=== PATIENT | male | born 1955 | race Caucasian/White ===

== ENCOUNTER 2016-10-12 23:54 | Inpatient (IN) | payer OTHER ==
[2016-10-13] MEDS ORDERED: HYDROmorphone 1 MG/ML Syringe IVPUSH ONE ×2 (02:03→03:27)
[2016-10-13] MEDS ORDERED: Ondansetron 4 MG/2 ML SDV IVPUSH ONE (02:03)
[2016-10-13] MEDS ORDERED: Sodium Chloride 0.9% 1,000 ML IV SCH ×2 (02:15→03:30)
[2016-10-13] MEDS: Pantoprazole 40 MG Vial IVPUSH ONE ×2 (03:47→03:50)
[2016-10-13] MEDS ORDERED: Naloxone 0.4 MG/ML SDV IVPUSH PRN (04:43)
[2016-10-13] MEDS ORDERED: Insulin Detemir 100 Units/ML 3 ML Pen SUBCUT ONE (04:43)
[2016-10-13] MEDS ORDERED: Albuterol 0.083% 2.5 MG/3 ML Neb Soln NEB PRN (04:43)
[2016-10-13] MEDS ORDERED: LORazepam 2 MG/ML MDV IV PRN (04:43)
[2016-10-13] MEDS ORDERED: Albuterol/Ipratropium 3.0-0.5 MG/3 ML Neb Soln NEB PRN (04:43)
[2016-10-13] MEDS ORDERED: Lactated Ringers 1,000 ML IV SCH (04:43)
--- NOTE | 2016-10-13 04:52 | EDM.PDOC ---
ED HPI GENERAL MEDICAL PROBLEM - General Chief Complaint: Abdominal Pain Stated Complaint: ILLNESS WEIGHT LOSS Time Seen by Provider: 10/13/16 02:02 Source of Information: Reports: Patient History Limitations: Reports: No Limitations - History of Present Illness INITIAL COMMENTS - FREE TEXT/NARRATIVE: abdominal pain; this is a 60 year old male present to ER with concerns of nausea , vomiting and retching for the past 3 days. He reports lives in [place], [place] , here on vacation. He has multi concerns of possible pancreatitis, losing wt, ventral hernia. He just doesnt feel right. 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 Onset: Gradual Duration: Day(s):, Getting Worse Location: Reports: Abdomen Quality: Reports: Sharp Severity: Severe Improves with: Reports: None Worsens with: Reports: Eating Associated Symptoms: Reports: Fever/Chills, Headaches, Loss of Appetite, Malaise , Nausea/Vomiting, Weakness Abdominal Pain Score (Numeric/FACES): 10 - Related Data Allergies Allergy/AdvReac Type Severity Reaction Status Date / Time piperacillin [From Zosyn] Allergy Rash Verified 10/13/16 01:43 tazobactam [From Zosyn] Allergy Rash Verified 10/13/16 01:43 Home Meds: Home Meds Allopurinol [Zyloprim] 300 mg PO DAILY 10/13/16 [History] Hydrochlorothiazide [Hydrochlorothiazide] 12.5 mg PO DAILY 10/13/16 [History] Pramipexole [Mirapex] 0.5 mg PO BEDTIME PRN 10/13/16 [History] Venlafaxine [Venlafaxine HCl ER] 150 mg PO DAILY 10/13/16 [History] Zolpidem Tartrate [Zolpidem Tartrate ER] 12.5 mg PO BEDTIME 10/13/16 [History] atorvaSTATin [Lipitor] 80 mg PO DAILY 10/13/16 [History] Past Medical History HEENT History: Reports: Impaired Vision Cardiovascular History: Reports: Stents Gastrointestinal History: Reports: Bowel Obstruction, Pancreatitis, Other (See Below) Other Gastrointestinal History: hernia, cyst after pancreatitis Musculoskeletal History: Reports: Back Pain, Chronic, Fracture Endocrine/Metabolic History: Reports: Diabetes, Type I Hematologic History: Reports: Anemia, Blood Transfusion(s) - Past Surgical History Cardiovascular Surgical History: Reports: Coronary Artery Stent GI Surgical History: Reports: Other (See Below) Other GI Surgeries/Procedures: cyst removal Neurological Surgical History: Reports: C-Spine, Lumbar Spine Musculoskeletal Surgical History: Reports: ORIF Social & Family History - Tobacco Use Smoking Status *Q: Current Every Day Smoker Years of Tobacco use: 20 Packs/Tins Daily: 0.5 - Caffeine Use Caffeine Use: Reports: Coffee - Recreational Drug Use Recreational Drug Use: No - Living Situation & Occupation Living situation: Reports: Occupation: Employed ED ROS GENERAL - Review of Systems Review Of Systems: See Below Constitutional: Reports: Chills, Malaise, Weakness, Fatigue, Decreased Appetite , Weight Loss Respiratory: Reports: Other (smoker; 1/2 pack of mini cigars) Cardiovascular: Reports: Edema (lower legs.) Endocrine: Reports: High Glucose, Other (Diabetes Type 1 , dx Feb 2016) GI/Abdominal: Reports: Abdominal Pain, Anorexia, Decreased Appetite, Nausea, Vomiting, Other (ventral hernia, Gastric bypass 2005) : Reports: No Symptoms Musculoskeletal: Reports: Back Pain, Muscle Pain, Other (hx of lamenectomy) Skin: Reports: No Symptoms Neurological: Reports: No Symptoms Psychiatric: Reports: No Symptoms Hematologic/Lymphatic: Reports: Anemia, Easy Bruising Immunologic: Reports: No Symptoms ED EXAM, GI/ABD - Physical Exam Exam: See Below Exam Limited By: No Limitations General Appearance: Alert, Anxious, Mild Distress, Thin, Cachetic Eyes: Bilateral: Normal Appearance Ears: Normal External Exam Nose: Normal Inspection, Normal Mucosa, No Blood Throat/Mouth: Normal Inspection, Normal Lips, Normal Teeth, Normal Gums, Normal Oropharynx, Normal Voice, No Airway Compromise Head: Atraumatic, Normocephalic, Other (thin, bony facial appearance) Neck: Normal Inspection, Supple, Non-Tender, Full Range of Motion Respiratory/Chest: No Respiratory Distress, Lungs Clear, Normal Breath Sounds, No Accessory Muscle Use, Chest Non-Tender Cardiovascular: Normal Peripheral Pulses, Regular Rate, Rhythm, No Edema, No Gallop, No JVD, No Murmur, No Rub GI/Abdominal: Hypoactive Bowel Sounds, Tenderness (generalized upper abdominal pain wth palpation), Other (hernia noted to mid abdomen.) (Male) Exam: Deferred Rectal (Males) Exam: Deferred Back Exam: Normal Inspection, Muscle Spasm Extremities: Normal Range of Motion, Non-Tender, Normal Capillary Refill, Pedal Edema Neurological: Alert, Oriented, CN II-XII Intact, Normal Cognition, Normal Gait, Normal Reflexes, No Motor/Sensory Deficits Psychiatric: Normal Mood, Anxious Skin Exam: Warm, Dry, Intact, Normal Color, No Rash Lymphatic: No Adenopathy Course - Vital Signs Last Recorded V/S: Last Vital Signs Temp 36.5 C 10/13/16 00:58 Pulse 76 10/13/16 00:58 Resp 16 10/13/16 00:58 BP 142/91 H 10/13/16 00:58 Pulse Ox 99 10/13/16 00:58 - Orders/Labs/Meds Orders: Active Orders 24 hr Category Date Time Status Abdomen Pelvis wo Cont [CT] Stat Exams 10/13/16 02:20 Taken Sodium Chloride 0.9% [Normal Saline] 1,000 ml Med 10/13/16 03:30 Active IV ASDIRECTED Medication Orders Albuterol (Proventil Neb Soln) 2.5 mg NEB Q4H PRN PRN Reason: Shortness Of Breath/wheezing Albuterol/Ipratropium (Duoneb 3.0-0.5 Mg/3 Ml) 3 ml NEB QID PRN PRN Reason: Shortness Of Breath/wheezing Hydrochlorothiazide (Hydrochlorothiazide) 12.5 mg PO DAILY MARTI Hydromorphone HCl (Dilaudid Appointment Specialist 15 Mg In Ns 30 Ml) 0 mg IV ASDIRECTED PRN; Protocol PRN Reason: Pain Sodium Chloride (Normal Saline) 1,000 mls @ 99 mls/hr IV ASDIRECTED MARTI Last Admin: 10/13/16 03:49 Dose: 99 mls/hr Lactated Ringer's (Ringers, Lactated) 1,000 mls @ 500 mls/hr IV ASDIRECTED [facility] Insulin Aspart (Novolog) 0 unit SUBCUT ASDIRECTED MARTI PRN Reason: Protocol Insulin Detemir (Levemir) 20 unit SUBCUT ONETIME ONE Stop: 10/13/16 04:44 Lorazepam (Ativan) 1 mg IV Q6H PRN PRN Reason: Nausea/Vomiting Naloxone HCl (Narcan) 0.4 mg IVPUSH Q2M PRN PRN Reason: Respiratory Distress Non-Formulary Medication (Venlafaxine [Venlafaxine Hcl Er]) 150 mg PO DAILY [facility] Ondansetron HCl (Zofran) 4 mg IV Q4H PRN PRN Reason: Nausea/Vomiting Zolpidem Tartrate (Ambien) 5 mg PO BEDTIME PRN PRN Reason: Sleep Labs: Laboratory Tests 10/13/16 10/13/16 10/13/16 Range/Units 02:15 02:15 02:15 WBC 8.6 (4.5-11.0) K/uL RBC 4.45 (4.30-5.90) M/uL Hgb 11.1 L (12.0-15.0) g/dL Hct 33.0 L (40.0-54.0) % MCV 74 L (80-98) fL MCH 25 L (27-31) pg MCHC 34 (32-36) % Plt Count 550 H (150-400) K/uL Neut % (Auto) 64 (36-66) % Lymph % (Auto) 20 L (24-44) % [place] % (Auto) 15 H (2-6) % Eos % (Auto) 1 L (2-4) % Baso % (Auto) 0 (0-1) % PT 11.5 (9.5-12.0) sec INR 1.07 (0.80-1.20) Sodium 130 L (140-148) mmol/L Potassium 3.3 L (3.6-5.2) mmol/L Chloride 95 L (100-108) mmol/L Carbon Dioxide 26 (21-32) mmol/L Anion Gap 12.3 (5.0-14.0) mmol/L BUN 15 (7-18) mg/dL Creatinine 1.0 (0.8-1.3) mg/dL Est Cr Clr Drug Dosing 90.00 mL/min Estimated GFR (MDRD) > 60 (>60) Glucose 233 H (74-106) mg/dL Calcium 8.2 L (8.5-10.1) mg/dL Magnesium 2.0 (1.8-2.4) mg/dL Total Bilirubin 0.4 (0.2-1.0) mg/dL AST 14 L (15-37) U/L ALT 17 (12-78) U/L Alkaline Phosphatase 224 H (46-116) U/L Troponin I < 0.017 (0.000-0.056) ng/mL Total Protein 6.9 (6.4-8.2) g/dL Albumin 2.7 L (3.4-5.0) g/dL Globulin 4.2 H (2.3-3.5) g/dL Albumin/Globulin Ratio 0.6 L (1.2-2.2) Amylase (25-115) U/L Lipase (73-393) U/L Urine Color Urine Appearance Urine pH (4.5-8.0) Ur Specific [place] (1.008-1.030) Urine Protein (NEGATIVE) mg/dL Urine Glucose (UA) (NEGATIVE) mg/dL Urine Ketones (NEGATIVE) mg/dL Urine Occult Blood (NEGATIVE) Urine Nitrite (NEGAITVE) Urine Bilirubin (NEGATIVE) Urine Urobilinogen (NORMAL) mg/dL Ur Leukocyte Esterase (NEGATIVE) Urine RBC (0-5) Urine WBC (0-5) Ur Epithelial Cells Amorphous Sediment Urine Bacteria Urine Mucus Urine Opiates Screen (NEGATIVE) Ur Oxycodone Screen (NEGATIVE) Urine Methadone Screen (NEGATIVE) Ur Propoxyphene Screen (NEGATIVE) Ur Barbiturates Screen (NEGATIVE) Ur Tricyclics Screen (NEGATIVE) Ur Phencyclidine Scrn (NEGATIVE) Ur Amphetamine Screen (NEGATIVE) U Methamphetamines Scrn (NEGATIVE) Urine MDMA Screen (NEGATIVE) U Benzodiazepines Scrn (NEGATIVE) U Cocaine Metab Screen (NEGATIVE) U Marijuana (THC) Screen (NEGATIVE) 10/13/16 10/13/16 10/13/16 Range/Units 02:15 03:44 03:44 WBC (4.5-11.0) K/uL RBC (4.30-5.90) M/uL Hgb (12.0-15.0) g/dL Hct (40.0-54.0) % MCV (80-98) fL MCH (27-31) pg MCHC (32-36) % Plt Count (150-400) K/uL Neut % (Auto) (36-66) % Lymph % (Auto) (24-44) % [place] % (Auto) (2-6) % Eos % (Auto) (2-4) % Baso % (Auto) (0-1) % PT (9.5-12.0) sec INR (0.80-1.20) Sodium (140-148) mmol/L Potassium (3.6-5.2) mmol/L Chloride (100-108) mmol/L Carbon Dioxide (21-32) mmol/L Anion Gap (5.0-14.0) mmol/L BUN (7-18) mg/dL Creatinine (0.8-1.3) mg/dL Est Cr Clr Drug Dosing mL/min Estimated GFR (MDRD) (>60) Glucose (74-106) mg/dL Calcium (8.5-10.1) mg/dL Magnesium (1.8-2.4) mg/dL Total Bilirubin (0.2-1.0) mg/dL AST (15-37) U/L ALT (12-78) U/L Alkaline Phosphatase (46-116) U/L Troponin I (0.000-0.056) ng/mL Total Protein (6.4-8.2) g/dL Albumin (3.4-5.0) g/dL Globulin (2.3-3.5) g/dL Albumin/Globulin Ratio (1.2-2.2) Amylase 96 (25-115) U/L Lipase 293 (73-393) U/L Urine Color Yellow Urine Appearance Clear Urine pH 6.0 (4.5-8.0) Ur Specific [place] 1.020 (1.008-1.030) Urine Protein Negative (NEGATIVE) mg/dL Urine Glucose (UA) 1000 H (NEGATIVE) mg/dL Urine Ketones 15 H (NEGATIVE) mg/dL Urine Occult Blood Negative (NEGATIVE) Urine Nitrite Negative (NEGAITVE) Urine Bilirubin Small (NEGATIVE) Urine Urobilinogen 1 (NORMAL) mg/dL Ur Leukocyte Esterase Negative (NEGATIVE) Urine RBC Not seen (0-5) Urine WBC Not seen (0-5) Ur Epithelial Cells Few Amorphous Sediment Not seen Urine Bacteria Not seen Urine Mucus Few Urine Opiates Screen Negative (NEGATIVE) Ur Oxycodone Screen Negative (NEGATIVE) Urine Methadone Screen Negative (NEGATIVE) Ur Propoxyphene Screen Negative (NEGATIVE) Ur Barbiturates Screen Negative (NEGATIVE) Ur Tricyclics Screen Negative (NEGATIVE) Ur Phencyclidine Scrn Negative (NEGATIVE) Ur Amphetamine Screen Negative (NEGATIVE) U Methamphetamines Scrn Negative (NEGATIVE) Urine MDMA Screen Negative (NEGATIVE) U Benzodiazepines Scrn Negative (NEGATIVE) U Cocaine Metab Screen Negative (NEGATIVE) U Marijuana (THC) Screen Negative (NEGATIVE) Meds: Medications Generic Name Dose Route Start Last Admin Trade Name Chapo PRN Reason Stop Dose Admin Albuterol 2.5 mg 10/13/16 04:43 Proventil Neb Soln NEB Q4H PRN Shortness Of Breath/wheezing Albuterol/Ipratropium 3 ml 10/13/16 04:43 Duoneb 3.0-0.5 Mg/3 Ml NEB QID PRN Shortness Of Breath/wheezing Hydrochlorothiazide 12.5 mg 10/13/16 09:00 Hydrochlorothiazide PO DAILY MARTI Hydromorphone HCl 0 mg 10/13/16 04:43 Dilaudid Appointment Specialist 15 Mg In Ns 30 Ml IV ASDIRECTED PRN Pain Protocol Sodium Chloride 1,000 mls @ 99 mls/hr 10/13/16 03:30 10/13/16 03:49 Normal Saline IV 99 mls/hr ASDIRECTED MARTI Administration Lactated Ringer's 1,000 mls @ 500 mls/hr 10/13/16 04:43 Ringers, Lactated IV ASDIRECTED [facility] Insulin Aspart 0 unit 10/13/16 04:43 Novolog SUBCUT ASDIRECTED [facility] Protocol Insulin Detemir 20 unit 10/13/16 04:43 Levemir SUBCUT 10/13/16 04:44 ONETIME ONE Lorazepam 1 mg 10/13/16 04:43 Ativan IV Q6H PRN Nausea/Vomiting Naloxone HCl 0.4 mg 10/13/16 04:43 Narcan IVPUSH Q2M PRN Respiratory Distress Non-Formulary Medication 150 mg 10/13/16 09:00 Venlafaxine [Venlafaxine Hcl Er] PO DAILY [facility] Ondansetron HCl 4 mg 10/13/16 04:43 Zofran IV Q4H PRN Nausea/Vomiting Zolpidem Tartrate 5 mg 10/13/16 04:43 Ambien PO BEDTIME PRN Sleep Discontinued Medications Generic Name Dose Route Start Last Admin Trade Name Chapo PRN Reason Stop Dose Admin Hydromorphone HCl 1 mg 10/13/16 02:03 10/13/16 02:22 Dilaudid IVPUSH 10/13/16 02:04 1 mg ONETIME ONE Administration Hydromorphone HCl 1 mg 10/13/16 03:27 10/13/16 03:53 Dilaudid IVPUSH 10/13/16 03:28 1 mg ONETIME ONE Administration Sodium Chloride 1,000 mls @ 999 mls/hr 10/13/16 02:15 10/13/16 02:17 Normal Saline IV 999 mls/hr ASDIRECTED MARTI Administration Ondansetron HCl 4 mg 10/13/16 02:03 10/13/16 02:18 Zofran IVPUSH 10/13/16 02:04 4 mg ONETIME ONE Administration Pantoprazole Sodium 40 mg 10/13/16 03:29 10/13/16 03:50 Protonix Iv IVPUSH 10/13/16 03:30 40 mg ONETIME ONE Administration - Re-Assessments/Exams Free Text/Narrative Re-Assessment/Exam: 10/13/16 04:[address] scan of abdomen and pelvis; show a bowel obstruction, not pancreatitis labs; wbc 8.6, hgb 11.1, hct 33.0, Na 130, K+3.3, cl 95, anion gap 12.5, bun 15 , creat 1.0, [id number], inr 1.07, PT 11.5, amylase 96, lipase [address] 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
[2016-10-13] MEDS ORDERED: Potassium Chloride 20 MEQ in Premix Bag 1 BAG IV ONE (05:08)
[2016-10-13] MEDS: HYDROmorphone/Normal Saline 15 MG/30 ML PCA IV PRN ×3 (05:12→22:40)
[2016-10-13] MEDS: Venlafaxine 75 MG Cap.ER PO SCH (08:35)
[2016-10-13] MEDS: Hydrochlorothiazide 12.5 MG Cap PO SCH (08:45)
[2016-10-13] MEDS: Insulin Aspart 100 Units/ML 3 ML Pen SUBCUT SCH ×3 (08:46→18:20)
[2016-10-13] MEDS ORDERED: Allopurinol 300 MG Tab PO ONE (09:00)
[2016-10-13] MEDS ORDERED: Iohexol 300 MG/ML 30 ML Bottle PO ONE (09:33)
[2016-10-13] MEDS ORDERED: Iohexol 647 MG/ML 10 ML SDV ONE (09:48)
[2016-10-13] MEDS ORDERED: Iopamidol 612 MG/ML 100 ML Bottle IV PRN (09:58)
[2016-10-13] MEDS ORDERED: Sodium Chloride 0.9% 75 ML IV SCH (10:00)
[2016-10-13] MEDS: Potassium Chloride 20 MEQ, Lidocaine 1% 2 ML in Sodium Chloride 0.9% 100 ML IV SCH ×3 (11:42→16:20)
[2016-10-13] MEDS: Ondansetron 4 MG/2 ML SDV IV PRN ×2 (15:28→20:30)
[2016-10-13] MEDS: Dextrose 5%-Lactated Ringers 1,000 ML IV SCH ×2 (16:21→23:58)
[2016-10-13] MEDS: Nicotine 14 MG/24 Hr Patch TRDERM SCH (18:17)
[2016-10-13] MEDS: Remove Patch*NICOTINE PATCH TRDERM SCH (20:11)
[2016-10-13] MEDS: Zolpidem 5 MG Tab PO PRN (23:57)
[2016-10-14] MEDS: Ondansetron 4 MG/2 ML SDV IV PRN (02:52)
[2016-10-14] MEDS ORDERED: Rocuronium 50 MG/5 ML Vial ONE ×2 (05:56→11:58)
[2016-10-14] MEDS ORDERED: Propofol 200 MG/20 ML SDV ONE (05:56)
[2016-10-14] MEDS ORDERED: Succinylcholine/Normal Saline 200 MG/10 ML Syringe ONE (05:56)
[2016-10-14] MEDS ORDERED: Ondansetron 4 MG/2 ML SDV ONE (05:56)
[2016-10-14] MEDS ORDERED: fentaNYL 250 MCG/5 ML SDV ONE (05:56)
[2016-10-14] MEDS ORDERED: Neostigmine Methylsulfate 1 MG/ML 5 ML Syringe ONE (05:56)
[2016-10-14] MEDS ORDERED: Dexamethasone 4 MG/ML SDV ONE (05:56)
[2016-10-14] MEDS: Dextrose 5%-Lactated Ringers 1,000 ML IV SCH ×2 (06:21→15:47)
[2016-10-14] MEDS ORDERED: cefOXitin 2 GM in Sodium Chloride 0.9% 50 ML IV ONE (07:30)
[2016-10-14] MEDS: Insulin Aspart 100 Units/ML 3 ML Pen SUBCUT SCH ×3 (08:41→21:13)
[2016-10-14] MEDS: Nicotine 14 MG/24 Hr Patch TRDERM SCH (08:49)
[2016-10-14] MEDS: Venlafaxine 75 MG Cap.ER PO SCH (09:23)
[2016-10-14] MEDS: Hydrochlorothiazide 12.5 MG Cap PO SCH (09:24)
[2016-10-14] MEDS ORDERED: Bupivacaine 0.5%/EPINEPHrine 1:200,000 50 ML MDV ONE (09:59)
[2016-10-14] MEDS ORDERED: Lactated Ringers 1,000 ML ONE (11:04)
[2016-10-14] MEDS ORDERED: fentaNYL 25 MCG/HR Transdermal Patch TRDERM SCH (12:00)
[2016-10-14] MEDS ORDERED: Meropenem 500 MG SDV ONE (13:20)
[2016-10-14] MEDS ORDERED: hydrOXYzine HCl 100 MG/2 ML SDV IM PRN (15:32)
[2016-10-14] MEDS ORDERED: hydrOXYzine HCl 25 MG Tab PO PRN (15:33)
[2016-10-14] MEDS ORDERED: Cyclobenzaprine 10 MG Tab PO PRN (15:33)
[2016-10-14] MEDS: cefOXitin 2 GM in Sodium Chloride 0.9% 50 ML IV SCH ×2 (15:46→21:36)
[2016-10-14] MEDS: HYDROmorphone/Normal Saline 15 MG/30 ML PCA IV PRN (20:20)
[2016-10-14] MEDS: FENTANYL PATCH CHECK TOP SCH (20:41)
[2016-10-14] MEDS: Remove Patch*NICOTINE PATCH TRDERM SCH (21:36)
[2016-10-15] MEDS: Zolpidem 5 MG Tab PO PRN ×2 (00:37→23:43)
[2016-10-15] MEDS: Dextrose 5%-Lactated Ringers 1,000 ML IV SCH ×4 (00:37→16:07)
[2016-10-15] MEDS ORDERED: Iohexol 647 MG/ML 50 ML SDV PO STA (03:29)
[2016-10-15] MEDS: cefOXitin 2 GM in Sodium Chloride 0.9% 50 ML IV SCH (04:23)
[2016-10-15] MEDS ORDERED: Insulin Detemir 100 Units/ML 3 ML Pen SUBCUT ONE (07:15)
--- NOTE | 2016-10-15 08:06 | PN ---
DATE OF SERVICE: 10/15/2016 SUBJECTIVE: Malvin is a 60-year-old male. He is postop day #1. Reporting his pain is controlled. Temp max of 99.2. Oral intake of clear liquid 720 and output is 1600. FRANKIE drain put out 210 of light pink serous drainage. Labs this morning; hemoglobin 11.8 and magnesium was 1.5. REVIEW OF SYSTEMS: Remainder of review of systems negative for any pertinent positives and negatives. OBJECTIVE: GENERAL: Malivn Urbina is a 60-year-old male. He is alert and oriented. VITAL SIGNS: TPR 99, 180, 16, blood pressure 151/100. HEENT: Negative. NECK: Supple. HEART: Regular rate and rhythm. LUNGS: Clear. ABDOMEN: Dressings dry and intact. FRANKIE drain intact. Abdominal binder is on. EXTREMITIES: Without peripheral edema. ASSESSMENT: 1. Exploratory laparotomy with lysis of adhesions. 2. Formation of pancreatic cyst gastrostomy. 3. Small-bowel resection. 4. Repair of incarcerated incisional hernia. 5. Placement of Vicryl mesh. 6. Near complete omentectomy for partial adhesions of small-bowel obstruction, incarcerated incisional hernia, pancreatic pseudocyst, extensive adhesions, and large portion of necrotic omentum. Date of surgery, 10/14/2016. PLAN: 1. Schedule and have consent signed for delayed primary closure in a.m., 10/16/2016, n.p.o. after midnight. IV and local sedation, Elmer Trinidad M.D. 2. Decrease IV rate to 100 mL per hour. 3. Magnesium 2 g IV q.6 hours x72 hours. 4. Full liquid diet. 5. Lantus 10 units subcu now. 6. Lantus 20 units q.h.s. scheduled. 7. Good pulmonary toilet encouraged. 8. We will evaluate p.r.n. or in a.m. Sue Ho PA-C /[id number]
[2016-10-15] MEDS: Venlafaxine 75 MG Cap.ER PO SCH (08:22)
[2016-10-15] MEDS: Nicotine 14 MG/24 Hr Patch TRDERM SCH (08:22)
[2016-10-15] MEDS: FENTANYL PATCH CHECK TOP SCH ×2 (08:24→21:32)
[2016-10-15] MEDS: Hydrochlorothiazide 12.5 MG Cap PO SCH (08:24)
[2016-10-15] MEDS: Insulin Aspart 100 Units/ML 3 ML Pen SUBCUT SCH ×3 (08:27→18:14)
[2016-10-15] MEDS ORDERED: Insulin Detemir 100 Units/ML 3 ML Pen SUBCUT SCH (09:00)
--- NOTE | 2016-10-15 09:28 | CR ---
UGI wo KUB HISTORY: eval gbp FINDINGS: After administration of oral contrast, upright views were obtained. Post operative changes gastric bypass. Surgical drains in place. No evidence for leak. Contrast passes freely into dilated proximal small bowel loops. IMPRESSION: No evidence for leak.
[2016-10-15] MEDS: Magnesium Sulfate/Water 2 GM in Premix Bag 1 BAG IV SCH ×3 (09:38→21:33)
--- NOTE | 2016-10-15 10:55 | CR ---
Abdomen 1V Flat INDICATION: DOCUMENT LOCATION OF GASTROSTOMY STENT FINDINGS: Postoperative changes gastric bypass. Surgical drain in place. Linear density projected ov er the left upper quadrant. No evidence for small bowel obstruction. Lumbar laminectomies.
[2016-10-15] MEDS: Ondansetron 4 MG/2 ML SDV IV PRN (13:16)
[2016-10-15] MEDS: HYDROmorphone/Normal Saline 15 MG/30 ML PCA IV PRN (17:52)
[2016-10-15] MEDS: Insulin Detemir 100 Units/ML 3 ML Pen SUBCUT SCH (21:30)
[2016-10-15] MEDS: Remove Patch*NICOTINE PATCH TRDERM SCH (21:32)
[2016-10-16] MEDS: Dextrose 5%-Lactated Ringers 1,000 ML IV SCH (02:46)
[2016-10-16] MEDS: Magnesium Sulfate/Water 2 GM in Premix Bag 1 BAG IV SCH ×4 (03:21→21:57)
[2016-10-16] MEDS ORDERED: Meropenem 500 MG SDV ONE (06:52)
[2016-10-16] MEDS ORDERED: Lidocaine 1% 50 ML MDV ONE (06:52)
[2016-10-16] MEDS ORDERED: Bupivacaine 0.5%/EPINEPHrine 1:200,000 50 ML MDV ONE (06:52)
[2016-10-16] MEDS ORDERED: Propofol 200 MG/20 ML SDV ONE (06:58)
[2016-10-16] MEDS ORDERED: fentaNYL 100 MCG/2 ML SDV ONE (06:58)
[2016-10-16] MEDS ORDERED: Midazolam 1 MG/ML 2 ML SDV ONE (06:58)
[2016-10-16] MEDS ORDERED: Ondansetron 4 MG/2 ML SDV ONE (07:45)
[2016-10-16] MEDS ORDERED: Dexamethasone 4 MG/ML SDV ONE (07:45)
[2016-10-16] MEDS ORDERED: 50% Dextrose in Water 50 ML Syringe IVPUSH ONE (08:00)
[2016-10-16] MEDS: Hydrochlorothiazide 12.5 MG Cap PO SCH (09:24)
[2016-10-16] MEDS: Venlafaxine 75 MG Cap.ER PO SCH (09:24)
[2016-10-16] MEDS: FENTANYL PATCH CHECK TOP SCH ×2 (09:26→22:22)
[2016-10-16] MEDS: Nicotine 14 MG/24 Hr Patch TRDERM SCH (09:28)
[2016-10-16] MEDS ORDERED: MVI, Adult with Vitamin K 10 ML, Chromium/Copper/Mang/Selen/Zn 1 ML, Thiamine 200 MG in... IV ONE ×4 (10:00)
[2016-10-16] MEDS: Bisacodyl 5 MG Tab PO SCH ×2 (10:49→21:57)
[2016-10-16] MEDS: Docusate Sodium 100 MG Cap PO SCH ×2 (10:49→21:57)
[2016-10-16] MEDS: Insulin Aspart 100 Units/ML 3 ML Pen SUBCUT SCH ×3 (12:18→22:01)
[2016-10-16] MEDS: Amylase/Lipase/Protease 12,000 Unit Cap.CR PO SCH (17:28)
[2016-10-16] MEDS: HYDROmorphone/Normal Saline 15 MG/30 ML PCA IV PRN (19:35)
[2016-10-16] MEDS: Amylase/Lipase/Protease 12,000 Unit Cap.CR PO PRN (19:55)
[2016-10-16] MEDS ORDERED: Zolpidem 5 MG Tab PO PRN (21:28)
[2016-10-16] MEDS: Insulin Detemir 100 Units/ML 3 ML Pen SUBCUT SCH (21:58)
[2016-10-16] MEDS: Metoprolol Succinate 50 MG Tab.ER PO SCH (21:58)
[2016-10-16] MEDS: Remove Patch*NICOTINE PATCH TRDERM SCH (22:22)
[2016-10-17] MEDS: Amylase/Lipase/Protease 12,000 Unit Cap.CR PO PRN ×2 (01:11→08:56)
[2016-10-17] MEDS: Magnesium Sulfate/Water 2 GM in Premix Bag 1 BAG IV SCH ×4 (03:21→21:14)
[2016-10-17] MEDS: Dextrose 5%-Lactated Ringers 1,000 ML IV SCH (03:25)
[2016-10-17] MEDS ORDERED: Iopamidol 612 MG/ML 150 ML Bottle IV PRN (07:45)
[2016-10-17] MEDS ORDERED: Sodium Chloride 0.9% 10 ML Syringe FLUSH PRN (07:45)
[2016-10-17] MEDS ORDERED: Sodium Chloride 0.9% 100 ML IV SCH (07:45)
[2016-10-17] MEDS: Venlafaxine 75 MG Cap.ER PO SCH (08:50)
[2016-10-17] MEDS: Metoprolol Succinate 50 MG Tab.ER PO SCH (08:50)
[2016-10-17] MEDS: Docusate Sodium 100 MG Cap PO SCH ×2 (08:51→21:09)
[2016-10-17] MEDS: Hydrochlorothiazide 12.5 MG Cap PO SCH (08:51)
[2016-10-17] MEDS: Nicotine 14 MG/24 Hr Patch TRDERM SCH (08:51)
[2016-10-17] MEDS: Bisacodyl 5 MG Tab PO SCH ×2 (08:53→21:09)
[2016-10-17] MEDS: Amylase/Lipase/Protease 12,000 Unit Cap.CR PO SCH ×2 (08:56→13:14)
[2016-10-17] MEDS ORDERED: Magnesium Citrate Solution 296 ML Bottle PO ONE (09:00)
[2016-10-17] MEDS: Insulin Detemir 100 Units/ML 3 ML Pen SUBCUT SCH ×2 (09:22→17:30)
--- NOTE | 2016-10-17 09:23 | PN ---
DATE OF SERVICE: 10/17/2016 SUBJECTIVE: Malvin's blood sugars have been 57, 199, 244 and 261. He did have a reaction to Ambien where behavior got somewhat out of control. vital signs otherwise have been stable. He has been up walking. Oral intake was 1760. Urine output was 972. REVIEW OF SYSTEMS: Remainder of review of systems negative for any pertinent positives and negatives. OBJECTIVE: GENERAL: Malvin Urbina is a 60-year-old male, alert, orientated. VITAL SIGNS: TPR 96.8, 73, 16, blood pressure 112/71. HEENT: Negative. NECK: Supple. HEART: Regular rate and rhythm. LUNGS: Clear. ABDOMEN: Dressings dry and intact. Abdominal binder is on. EXTREMITIES: Without peripheral edema. ASSESSMENT: 1. Exploratory laparotomy with lysis of adhesions, formation of pancreatic cystogastrostomy, small bowel resection, repair of incarcerated incisional hernia, placement of Vicryl mesh for near-complete omentectomy for partial adhesions of small bowel obstruction, incarcerated incisional hernia, pancreatic pseudocyst, extensive adhesions and large portion of necrotic omentum. Date of surgery 10/14/2016. 2. Delayed primary closure on 10/16/2016. PLAN: 1. Dressing off, august shower. Abdominal and pelvis CT with IV contrast. 2. Check amylase on the FRANKIE drain. 3. Discontinue Levemir 20 units at bedtime. 4. Levemir 15 units subcu b.i.d. Mag citrate 1 bottle one time this morning. Tramadol 50 mg p.o. q.4 hours p.r.n. pain. Convert IV to saline lock. D5LR discontinued. 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 Discontinue continuous pulse ox. Discontinue Ambien. 5. Mechanical soft diet to continue. 6. We will evaluate p.r.n. or in a.m. Sue Ho PA-C /[id number]
--- NOTE | 2016-10-17 09:46 | CT ---
Abdomen Pelvis w Cont Total DLP 882 mGycm. INDICATION: check pancreas sp pseudo cyst COMPARISON: CT 10/13/2016. FINDINGS: Postoperative changes gastric bypass. Interval placement of a drain with resultant decreas e in size of the pseudocyst seen along the anterior and superior aspect of the pancreatic body, whic h now measures 1.5 cm AP x 3.6 cm RL, previously 4.4 cm AP x 6.1 cm RL. No new pseudocysts or radiat ion. Interval decrease in the inflammation of the adjacent stomach. Mildly dilated loops of small joycelyn wel throughout the abdomen suggesting ileus. Moderate gas and stool throughout the colon. Moderate f ree fluid in the pelvis. Small bilateral pleural effusions with associated compressive atelectasis. Mild intra and extrahepatic bile duct dilatation. Mild anasarca. Exam otherwise unremarkable. IMPRESSION: 1. Interval placement of a drain with resultant decrease in size of the pseudocyst seen along the an terior and superior aspect of the pancreatic body. 2. Decrease in inflammation of the adjacent stomach. 3. New small bilateral pleural effusions with compressive atelectasis. 4. Probable small and large bowel ileus.
[2016-10-17] MEDS: traMADol 50 MG Tab PO PRN (13:25)
[2016-10-17] MEDS: LIPASE PO PRN (17:34)
[2016-10-17] MEDS: AMYLASE PO PRN (17:34)
[2016-10-17] MEDS: PROTEASE PO PRN (17:34)
[2016-10-17] MEDS: LIPASE PO SCH (17:35)
[2016-10-17] MEDS: PROTEASE PO SCH (17:35)
[2016-10-17] MEDS: AMYLASE PO SCH (17:35)
[2016-10-17] MEDS: Acetaminophen/HYDROcodone 325-5 MG Tab PO PRN ×2 (17:41→21:13)
--- NOTE | 2016-10-17 19:29 | PN ---
DATE OF SERVICE: 10/16/2016 The patient has been running some low-grade temperatures, but otherwise he has been clinically stable. He is up and walking quite well. Oral intake was fairly good. He had a delayed primary closure earlier today that looked good. His blood sugar was somewhat low at 50, but with Decadron and some IV fluid that came up to 135 in recovery room, so we did not end up giving him any D50. Otherwise, he will go up to a mechanical soft diet today. I gave him some bowel stimulation and then continue the present BELLOWS TESTER for today. Tafoya catheter will be coming out as well. Elmer Trinidad MD /[id number]
[2016-10-17] MEDS: Remove Patch*NICOTINE PATCH TRDERM SCH (21:10)
[2016-10-18] MEDS: traMADol 50 MG Tab PO PRN ×2 (00:36→09:05)
[2016-10-18] MEDS: Acetaminophen/HYDROcodone 325-5 MG Tab PO PRN ×2 (01:30→06:05)
[2016-10-18] MEDS: Magnesium Sulfate/Water 2 GM in Premix Bag 1 BAG IV SCH (04:10)
[2016-10-18] MEDS ORDERED: Insulin Detemir 100 Units/ML 3 ML Pen SUBCUT SCH (07:45)
[2016-10-18 08:02] VITALS: BP 132/87
[2016-10-18] MEDS: LIPASE PO SCH (09:05)
[2016-10-18] MEDS: PROTEASE PO SCH (09:05)
[2016-10-18] MEDS: AMYLASE PO SCH (09:05)
[2016-10-18] MEDS: Docusate Sodium 100 MG Cap PO SCH (09:06)
[2016-10-18] MEDS: Hydrochlorothiazide 12.5 MG Cap PO SCH (09:07)
[2016-10-18] MEDS: Venlafaxine 75 MG Cap.ER PO SCH (09:07)
[2016-10-18] MEDS: Nicotine 14 MG/24 Hr Patch TRDERM SCH (09:07)
[2016-10-18] MEDS: Bisacodyl 5 MG Tab PO SCH (09:07)
[2016-10-18] MEDS: Metoprolol Succinate 50 MG Tab.ER PO SCH (09:08)
[2016-10-18] MEDS: AMYLASE PO PRN (09:09)
[2016-10-18] MEDS: LIPASE PO PRN (09:09)
[2016-10-18] MEDS: PROTEASE PO PRN (09:09)
--- NOTE | 2016-10-19 04:26 | DISCH ---
ADMISSION DIAGNOSES: 1. Abdominal pain. 2. History of pancreatitis. 3. Diabetes type 1. 4. Anemia. 5. History of coronary artery stent. 6. Nicotine addiction. DISCHARGE DIAGNOSES: 1. Exploratory laparotomy, lysis of adhesions, formation of pancreatic cystogastrostomy, small bowel resection, repair of incarcerated incisional hernia, placement of Vicryl mesh for near complete omentectomy for partial adhesions and small bowel obstruction, incarcerated incisional hernia, pancreatic pseudocyst, and extensive adhesions, and large portion of necrotic omentum. Date of surgery 10/14/2016. 2. Delayed primary closure, 10/16/2016. 3. Diabetes type 1. HISTORY: Malvin Urbina is a 60-year-old male, who presented to the emergency room on 10/13/2016 with abdominal pain. After preoperative evaluation and discussion of possible risks and possible complications, he wished to proceed with surgical procedure. HOSPITAL COURSE: Malvin was admitted on 10/13/2016 and he had surgery on 10/14/2016 with a delayed primary closure on 10/16/2016. He had no complications. A CT scan was obtained on 10/17/2016 to evaluate the pancreatic pseudocyst. Malvin was n.p.o. on ice chips until after his delayed primary closure. Then, he had some bowel stimulation. He did have a bowel movement and his diet was advanced. Blood sugars were monitored closely while in the hospital and his pain was well managed. Activity good. He was able to be discharged to home on 10/18/2016. PHYSICAL EXAMINATION: GENERAL: Malvin is a 60-year-old male. VITAL SIGNS: Height is 6 feet 2 inches. Weight is 173 pounds. TPR is 97, 61, 16, and blood pressure 132/87. HEENT: Negative. NECK: Supple. HEART: Regular rate and rhythm. LUNGS: Clear. ABDOMEN: Dressings dry and intact. Abdominal binder is on. EXTREMITIES: Without peripheral edema. DISPOSITION: Discharged to home. CONDITION: Stable and improving. FOLLOWUP APPOINTMENT: With Elmer Trinidad MD, on 10/24/2016 at 12:00 p.m. HOME MEDICATIONS: [place] 5/325 mg 1 to 2 every 4 hours p.r.n. pain #50 and Levemir 8 units twice daily. He is to resume his home medications of allopurinol 300 mg daily, hydrochlorothiazide 12.5 mg oral daily, Creon 36,000 units takes 3 capsules and also 36,000 with meals and 2 capsules of 36,000 with snacks, metoprolol succinate (Toprol-XL) 100 mg oral daily, Mirapex 0.5 mg at bedtime, venlafaxine ER 150 mg oral daily, zolpidem tartrate 12.5 mg oral at bedtime, and Lipitor 60 mg oral daily. DIET AFTER DISCHARGE: Usual diet as tolerated. Drink 8 to 10 glasses of water a day. ACTIVITY: As tolerated. No lifting greater than 10 pounds for 6 weeks. DISCHARGE INSTRUCTIONS: Driving, do not drive while on pain medications. Notify provider if any fever, increased pain, nausea, or vomiting. Wound incision care, keep site clean and dry. Wear abdominal binder for 2 weeks and as tolerated. SPECIAL INSTRUCTION: Use incentive spirometer 10 times every hour while awake. Check blood sugars 4 times a day and bring results of blood sugar to clinic appointment. To have abdominal and pelvic CT scan done in 2 to 3 weeks.
--- NOTE | 2016-10-22 09:44 | OR ---
DATE OF PROCEDURE: 10/16/2016 PREOPERATIVE DIAGNOSIS: Open abdominal incision. POSTOPERATIVE DIAGNOSIS: Open abdominal incision. PROCEDURE PERFORMED: DICTATION ENDS HERE. Elmer Trinidad MD /[id number]
--- NOTE | 2016-10-22 12:49 | OR ---
DATE OF PROCEDURE: 10/16/2016 PREOPERATIVE DIAGNOSIS: Open abdominal incision. POSTOPERATIVE DIAGNOSIS: Open abdominal incision. OPERATIVE PROCEDURE: Delayed primary closure of open abdominal incision. ANESTHESIA: Local plus IV sedation. INDICATION FOR PROCEDURE: The patient is 48 hours status post a complicated procedure including a small-bowel resection along with an opened stomach for cystogastrostomy related to treatment of a pancreatic pseudocyst. The skin and subcutaneous tissue were felt to be high risk for wound infection if closure were undertaken. Given this, the wound was packed open for a planned delayed primary closure. Potential risks of the procedure including bleeding and infection were reviewed, and the patient wishes to proceed. DETAILS OF PROCEDURE: The patient was taken to the operating room and placed in a supine position. After IV sedation was administered, the abdominal dressing was taken down. The incision was inspected and found to be clean. The incision was then prepped and draped, anesthetized with 1% lidocaine mixed with Marcaine and irrigated with meropenem-containing saline solution. The incision was then closed with 2 layers of 3-0 and 4-0 Vicryl stitch deep, and then riley for the skin. Dressing was applied. The patient was taken to the recovery room in satisfactory condition. lEmer Trinidad MD /[id number]
--- NOTE | 2016-10-22 15:14 | OR ---
DATE OF PROCEDURE: 10/14/2016 PREOPERATIVE DIAGNOSES: 1. Partial small bowel obstruction. 2. Chronic pancreatic pseudocyst. POSTOPERATIVE DIAGNOSES: 1. Partial release of small bowel obstruction. 2. Chronic pancreatic pseudocyst. 3. Incarcerated incisional hernia. 4. A large portion of omentum becoming ischemic secondary to adhesion takedown. 5. Peritoneal nodule within the adhesions adjacent to the distal small bowel. PROCEDURE PERFORMED: 1. Exploratory laparotomy with lysis of adhesions. a. Formation of the pancreatic cystogastrostomy (12272). b. Small bowel resection (98704). c. Repair of incarcerated incisional hernia (68121). d. Near total omentectomy (39385). e. Excision of peritoneal nodule within the adhesion adjacent to the distal small bowel (22968). f. Placement of Interceed mesh to displace small bowel from pelvic and abdominal wall (89013). ANESTHESIA: General. INDICATIONS FOR PROCEDURE: This is a 60-year-old status post previous Felipe-en-Y gastric bypass, presenting with a picture of a partial small bowel obstruction. As part of the workup, he was also noted to have a large pancreatic pseudocyst. This appears to be chronic with a fairly thick wall and is adjacent to the previously bypassed gastric body. Plan is to proceed with exploratory laparotomy with release of small bowel obstruction, possible bowel resection, and drainage of the pancreatic pseudocyst by means of a cystogastrostomy. Potential risks of the procedure including, bleeding, infection, leaks from various GI tract closures, possible recurrence of the problem over time were all reviewed, and the patient wishes to proceed. DETAILS OF PROCEDURE: The patient was taken to the operating room after general endotracheal anesthesia was induced. A Tafoya catheter was inserted and the abdomen was prepped and draped. The previous upper midline incision was then reused and extended somewhat more inferiorly and carried down through the full thickness of the abdominal wall. Upon entering the abdomen, the patient was noted to have very extensive adhesions, between essentially all of the surfaces of the small bowel. There was also a large amount of edema diffusely within the upper aspect of the abdomen. This appeared to be likely related to the pancreatic pseudocyst. Over an extended period, the adhesions were eventually lysed. During the course of that lysis of adhesions, a large portion of the omentum became ischemic, and there was an area of small bowel that was attached to quite a bit in the way of abdominal wall which was deserosalized. The patient also had an incarcerated incisional hernia as noted on the preoperative CT scan which was reduced as part of the dissection as well. During the course of dissection, a nodule with an adhesion just adjacent to the distal small bowel was identified and excised. This measured around 5 mm in size. Eventually, the area was dissected sufficiently. A gastrotomy was then performed. The gastric wall was noted to be strikingly edematous, and this appeared to create quite a thick layer between the surface of the stomach and the inner aspect of the pancreatic pseudocyst. Ideally, this would be drained by means of an excision of portion of the cyst wall and suture the adjacent opening in the posterior stomach, but this appeared to be unsafe due to the amount of edema present and thickness of those tissues. Given this, a cystogastrostomy was accomplished by means of initially aspirating the cyst and then sending some of that fluid for cytology and amylase, then placement of a wire over 16-Dominican introducer was placed, and at that point a 15-Dominican Gopal-Elizalde drain was placed across the cystogastrostomy. This was cut such that roughly 5 cm of it extended into the gastric lumen and then sutured to the gastric lumen with 2 sutures of 3-0 Vicryl stitch giving the patient time enough with the tube in place that a chronic tract would likely be adequately formed. It was noted that fluid was serous in appearance and certainly consistent with a pseudocyst fluid as opposed to mucinous neoplasm. As this was completed the gastrotomy was then closed with 2 layers of 3-0 Vicryl stitch. At this point, the area of small bowel which was deserosalized was resected having been divided proximally and distally with LISA riley as was the underlying mesentery. A side-to- side enteroenterostomy was accomplished with 2 internal firings of the LISA mccrary load, and the common opening was closed transversely with the purple load. The angles of the anastomosis and mesenteric defect approximated with some 3-0 Vicryl stitch. At this point, no further problems were noted. The abdomen was irrigated with an antibiotic- containing saline solution. Gopal-Elizalde drain was taken through the right upper abdomen and draped across the area of the cystogastrostomy. To limit recurrent adhesion formation to the pelvic abdominal wall, an Interceed mesh was placed and over that the incision closed with #2 Vicryl stitch. The skin and subcutaneous tissue were felt to be high risk for a wound infection should they be closed. Given this, the wound was packed open for a planned delayed primary closure in 48 hours. The patient was taken to the recovery room in satisfactory condition. Elmer Trinidad MD /[id number]
== END 2016-10-18 09:35 | disposition home or self-care (01) | DRG 336 ==
LOC: JP.ED 23:54 → JP.MS 10-13 03:53
PROVIDERS: ADMIT Surgery; ATTEND Surgery
PROC: 0DBT0ZZ (ICD-10-PCS; principal; 2016-10-14)
PROC: 0DN80ZZ Release Small Intestine, Open Approach (ICD-10-PCS; principal; 2016-10-14)
PROC: 0WBH0ZX Excision of Retroperitoneum, Open Approach, Diagnostic (ICD-10-PCS; principal; 2016-10-14)
PROC: 0F9G0ZZ Drainage of Pancreas, Open Approach (ICD-10-PCS; principal; 2016-10-14)
PROC: 0WQF0ZZ Repair Abdominal Wall, Open Approach (ICD-10-PCS; principal; 2016-10-14)
PROC: 0WQFXZZ Repair Abdominal Wall, External Approach (ICD-10-PCS; 2016-10-16)
DX: K56.5 Intestinal adhesions [bands] with obstruction (postinfection) (principal); K86.3 Pseudocyst of pancreas; R11.10 Vomiting, unspecified; E10.9 Type 1 diabetes mellitus without complications; Z79.4 Long term (current) use of insulin; Z88.8 Allergy status to other drugs, medicaments and biological substances; Z79.899 Other long term (current) drug therapy; I25.10 Atherosclerotic heart disease of native coronary artery without angina pectoris; Z95.5 Presence of coronary angioplasty implant and graft; F17.200 Nicotine dependence, unspecified, uncomplicated
CPT/HCPCS: 36415; 74000; 74000-26; 74176; 74177; 74177-26; 74240; 74240-26; 80053; 80305; 81001; 82150; 82607; 82728; 82746; 82962; 83690; 83735; 83880; 84100; 84484; 85025; 85027; 85610; 88112; 88302; 88304; 88305; 88307; 94762; 96361; 96374; 96375; 96376; 97165-GO; 99285-25; A9270-GY; C9113; J0694; J1100; J1170; J2185; J2250; J2405; J2704; J3010; J3411; J3475; J3480; J7030; J7040; J7042; J7050; J7120; Q9967